=== PATIENT | male | born 1990 | race Caucasian/White ===

== ENCOUNTER 2016-05-15 01:40 | Emergency (ER) | payer MEDICAID, OTHER ==
[2016-05-15] MEDS ORDERED: ALPRAZolam 0.25 MG TAB As Ordered ONE (02:26)
[2016-05-15] MEDS ORDERED: ACETAMINOPHEN 325 MG TAB As Ordered ONE (02:27)
--- NOTE | 2016-05-15 04:00 | REPUSA ---
CLINICAL HISTORY: Head trauma. TECHNIQUE: Multiple axial brain CT scan sections were obtained from base to vertex without contrast a dministration. COMMENTS: There is no evidence of skull fracture. The study shows normal configuration of sella turcica. There are no intra or extra-axial collections. There is no mass effect or midline shift. There is no evidence of hematoma formation. No hydrocephal us is present. No abnormal calcifications are noted. No significant abnormalities are seen either in the posterior fossa or supratentorial compartment. The sinuses and mastoid air cells are patent. Right frontal soft tissue contusion. IMPRESSION: No evidence of acute intracranial pathology. No intracranial hemorrhage or skull fracture. Thank you for your kind referral of this patient.
--- NOTE | 2016-05-15 05:11 | EDDOCDS ---
Nurse's Notes [facility] Name: Giovanny Carlson Age: 25 yrs Sex: Male : 1990 Arrival Date: 05/15/2016 Time: 01:40 Bed 11 Private MD: Diagnosis: Generalized anxiety disorder;Syncope and collapse-Hyperventilation Presentation: 05/15 01:45 Presenting complaint: Patient states: Pt was at work and had an anxiety attack and then lf1 a syncopal episode. Pt. reports he was standing up and then fell backward and hit the right temporal area of his head. Pt. reports the episode was unwitnessed but he believes he was unconscious for 10 minutes - no incontinence or history of seizures. Pt. states when he came to he flet like he was hyperventilating and had mid sternal chest pain that was 6/10. Presenting complaint: Patient states: Pt reports that similar episodes have happened in the past but he can usually prevent them if he sits down. Mental Health Triage Level: Level 1- Pt displays no suicidal or homicidal ideations and does not appear to be a danger to self or others. Adult Sepsis Screening: The patient does not have new or worsening altered mentation. Patient's respiratory rate is less than 22. Adult Sepsis Screening: Systolic blood pressure is greater than 100. Patient has a qSOFA score of 0- Negative Sepsis Screen. Suicide/Homicide risk assessment- the patient denies having any suicidal and/or homicidal ideations and does not present with any other emotional, behavioral or mental health complaints. Status: Patient is not a multimedia services manager or dependent. Transition of care: patient was not received from another setting of care. 01:45 Acuity: ARACELI Level 3 lf1 01:45 Method Of Arrival: Walkin/Carried/Asstd lf1 Triage Assessment: 01:53 General: Appears uncomfortable, Behavior is cooperative. Pain: Location: chest Pain lf1 currently is 6 out of 10 on a pain scale. HIV screening NA for this visit Offered previously. Neurological: Level of Consciousness is awake, alert, Oriented to person, place, time. EENT: No deficits noted. Cardiovascular: Chest pain is described as diffuse, Pain is 6 out of 10 on a pain scale. is located in mid sternal. Respiratory: Respiratory effort is even, unlabored, Respiratory pattern is regular. GI: Reports nausea, vomiting. Derm: Skin is normal. Injury Description: pt fell from standing. Historical: - Allergies: No known drug Allergies; - Home Meds: 1. none - PMHx: Anxiety; Depression; - PSHx: none; - Social history: Smoking status: Patient states former smoker of tobacco. No barriers to communication noted, The patient speaks fluent [place], Speaks appropriately for age, Preferred Language: [place]. - Family history: Not pertinent. - : The pt / caregiver states he / she is not on anticoagulants. Home medication list is obtained from the patient. - Exposure Risk Screening:: None identified. Screenin:30 Screening information is obtained from the patient. Fall risk: No risks identified. kas2 Assistance ADL's: requires no assistance with activities of daily living. Abuse/DV Screen: The patient / caregiver reports he/she is: not in a situation that causes fear, pain or injury. Nutritional screening: No deficits noted. Advance Directives: Currently, there is no health care proxy. There is no active DNR order. There is no living will. There is no Power of [employer] Con[employer]cher. home support is adequate. Assessment: 02:15 General: Appears in no apparent distress, comfortable, well nourished, well groomed, kas2 Behavior is appropriate for age, cooperative. Pain: Denies pain. Neurological: Level of Consciousness is awake, alert, Oriented to person, place, time. Cardiovascular: Rhythm is regular. Respiratory: Airway is patent Respiratory effort is even, unlabored, Respiratory pattern is regular, symmetrical, Breath sounds are clear bilaterally. Derm: Skin is intact, Skin is dry, Skin is pink, warm & dry. Skin temperature is warm. 03:36 General: Appears in no apparent distress, comfortable, Behavior is appropriate for age, kas2 cooperative. Pain: Denies pain. Neurological: Level of Consciousness is awake, alert, Oriented to person, place, time. Respiratory: Airway is patent Respiratory effort is even, unlabored, Respiratory pattern is regular, symmetrical. Derm: Skin is intact, Skin is dry, Skin is pink, warm & dry. Skin temperature is. 04:18 General: Patient laying in bed. No apparent distress. Appears comfortable. Denies pain kas2 or discomfort at this time. Call ng within reach. Will continue to monitor.. 04:55 General: Appears in no apparent distress, comfortable, Behavior is appropriate for age, kas2 cooperative. Pain: Denies pain. Neurological: Level of Consciousness is awake, alert, Oriented to person, place, time. Respiratory: Airway is patent Respiratory effort is even, unlabored, Respiratory pattern is regular, symmetrical. Derm: Skin is intact, Skin is dry, Skin is pink, warm & dry. Skin temperature is warm. Vital Signs: 01:45 BP 132 / 92; Pulse 90; Resp 18; Temp 97.1(T); Pulse Ox 100% on R/A; Weight 56.7 kg; lf1 Height 6 ft. 0 in. (182.88 cm); Pain 5/10; 05:08 BP 149 / 77; Pulse 54; Resp 18; Temp 96.8(O); Pulse Ox 99% on R/A; Pain 0/10; kas2 01:45 Body Mass Index 16.95 (56.70 kg, 182.88 cm) lf1 Vitals: 01:45 Log In Time: May 15, 2016 at 01:40. 1 ED Course: 01:42 Patient visited by Dawson Stovall Reg. pm4 01:42 Patient moved to Waiting pm4 01:45 Samantha Yen,RN is Primary Nurse. lf1 01:51 Triage Initiated lf1 01:56 Cecelia Mendez RN is Primary Nurse. lf1 01:56 Patient moved to 11 lf1 02:12 Kvng Garcia DO is Attending Physician. mm11 02:12 Patient visited by Kvng Garcia DO. mm11 02:25 Patient visited by Kvng Garcia DO. mm11 02:31 Patient visited by Cecelia Mendez RN. kas2 03:03 Patient visited by Cecelia Mendez RN. kas2 03:28 [facility] Payment Agreement was scanned into [employer] and attached to record. hs2 03:37 Patient visited by Cecelia Mendez RN. kas2 04:18 CT Head Without Contrast Returned. EDMS 04:19 Patient visited by Cecelia Mendez RN. kas2 04:48 [facility] is Referral Physician. mm11 05:10 The patient / caregiver is instructed regarding the plan of care and ED course. kas2 05:10 No IV's were initiated during this patient's visit. No procedures done that require [facility] assistance. Administered Medications: 02:29 Drug: ALPRAZolam 0.25 mg [alprazolam 0.25 mg tablet (1 tabs)] Route: PO; [facility] 02:29 Drug: Acetaminophen 650 mg [acetaminophen 325 mg tablet (2 tabs)] Route: PO; kas2 Order Results: Radiology Order: CT Head Without Contrast Test: CT Head Without Contrast REASON FOR EXAMINATION: Trauma; ; CLINICAL HISTORY: Head trauma.; TECHNIQUE: Multiple axial brain CT scan sections were obtained from base to vertex without contrast a; dministration.; COMMENTS:; There is no evidence of skull fracture.; The study shows normal configuration of sella turcica. There are no intra or extra-axial collections.; There is no mass effect or midline shift. There is no evidence of hematoma formation. No hydrocephal; us is present. No abnormal calcifications are noted.; No significant abnormalities are seen either in the posterior fossa or supratentorial compartment.; The sinuses and mastoid air cells are patent.; Right frontal soft tissue contusion.; IMPRESSION:; No evidence of acute intracranial pathology. No intracranial hemorrhage or skull fracture.; Thank you for your kind referral of this patient.; ; Outcome: 04:49 Discharge ordered by Provider. mm11 05:09 Discharge Assessment: patient administered narcotics - no. The following High Risk [facility] Discharge criteria are identified: None. Discharged to home ambulatory. Condition: good Condition: stable Condition: improved. CT Study completed. Property :Personal belongings accompany Pt. 05:10 Patient left the ED. [facility] Signatures: Dispatcher [employer] Samantha Perez RN RN lf1 Kvng Garcia, DO DO mm11 Honey Recio, Reg Reg hs2 Cecelia Mendez RN RN kas2 Dawson Stovall, Reg Reg pm4 ERID
--- NOTE | 2016-05-15 05:11 | EDDOCDS ---
Physician Documentation [facility] Name: Giovanny Carlson Age: 25 yrs Sex: Male : 1990 Arrival Date: 05/15/2016 Time: 01:40 Bed 11 Private MD: Disposition: 05/15/16 04:49 Discharged to Home/Self Care. Impression: Generalized anxiety disorder, Syncope and collapse - Hyperventilation. - Condition is Stable. - Discharge Instructions: Panic Attacks, Syncope, Syncope, [id number], Generalized Anxiety Disorder, Panic Attacks, [id number]. - Medication Reconciliation, Local Pharmacy Hours form. - Follow up: [facility]; When: 4 - 5 days; Reason: Continuance of care. - Problem is an acute exacerbation. - Symptoms have improved. Historical: - Allergies: No known drug Allergies; - Home Meds: 1. none - PMHx: Anxiety; Depression; - PSHx: none; - Social history: Smoking status: Patient states former smoker of tobacco. No barriers to communication noted, The patient speaks fluent [place]ian, Speaks appropriately for age, Preferred Language: [place]ian. - Family history: Not pertinent. - : The pt / caregiver states he / she is not on anticoagulants. Home medication list is obtained from the patient. - Exposure Risk Screening:: None identified. Vital Signs: 05/15 01:45 BP 132 / 92; Pulse 90; Resp 18; Temp 97.1(T); Pulse Ox 100% on R/A; Weight 56.7 kg / lf1 125 lbs; Height 6 ft. 0 in. (182.88 cm); Pain 5/10; 05:08 BP 149 / 77; Pulse 54; Resp 18; Temp 96.8(O); Pulse Ox 99% on R/A; Pain 0/10; kas2 01:45 Body Mass Index 16.95 (56.70 kg, 182.88 cm) lf1 MDM: 02:24 ALPRAZolam Tablet 0.25 mg PO once ordered. mm11 02:25 Acetaminophen Tablet 650 mg PO once ordered. mm11 02:25 CT Head Without Contrast Ordered. EDMS 03:27 Financial registration complete. hs2 03:28 [facility] [place] [facility] Payment Agreement was scanned into [employer] and attached to record. hs2 Administered Medications: 02:29 Drug: ALPRAZolam 0.25 mg [alprazolam 0.25 mg tablet (1 tabs)] Route: PO; kas2 02:29 Drug: Acetaminophen 650 mg [acetaminophen 325 mg tablet (2 tabs)] Route: PO; kas2 Signatures: Dispatcher [employer] EDSamantha AlbertsRN RN lf1 Kvng Garcia, DO mm11 Honey Recio, Reg Reg hs2 Cecelia Mendez RN RN kas2 The chart was reviewed and I authenticate all verbal orders and agree with the evaluation and treatment provided.Attachments: 03:28 [facility] Payment Agreement hs2 MTDD
--- NOTE | 2016-05-17 06:11 | EDDOCDS ---
Physician Documentation [facility] Name: Giovanny Carlson Age: 25 yrs Sex: Male : 1990 Arrival Date: 05/15/2016 Time: 01:40 Bed 11 Private MD: Disposition: 05/15/16 04:49 Discharged to Home/Self Care. Impression: Generalized anxiety disorder, Syncope and collapse - Hyperventilation. - Condition is Stable. - Discharge Instructions: Panic Attacks, Syncope, Syncope, [id number], Generalized Anxiety Disorder, Panic Attacks, [id number]-uk-[id number]. - Medication Reconciliation, Local Pharmacy Hours form. - Follow up: [facility]; When: 4 - 5 days; Reason: Continuance of care. - Problem is an acute exacerbation. - Symptoms have improved. Historical: - Allergies: No known drug Allergies; - Home Meds: 1. none - PMHx: Anxiety; Depression; - PSHx: none; - Social history: Smoking status: Patient states former smoker of tobacco. No barriers to communication noted, The patient speaks fluent [place], Speaks appropriately for age, Preferred Language: [place]. - Family history: Not pertinent. - : The pt / caregiver states he / she is not on anticoagulants. Home medication list is obtained from the patient. - Exposure Risk Screening:: None identified. Vital Signs: 05/15 01:45 BP 132 / 92; Pulse 90; Resp 18; Temp 97.1(T); Pulse Ox 100% on R/A; Weight 56.7 kg / lf1 125 lbs; Height 6 ft. 0 in. (182.88 cm); Pain 5/10; 05:08 BP 149 / 77; Pulse 54; Resp 18; Temp 96.8(O); Pulse Ox 99% on R/A; Pain 0/10; kas2 01:45 Body Mass Index 16.95 (56.70 kg, 182.88 cm) lf1 MDM: 02:24 ALPRAZolam Tablet 0.25 mg PO once ordered. mm11 02:25 Acetaminophen Tablet 650 mg PO once ordered. mm11 02:25 CT Head Without Contrast Ordered. EDMS 03:27 Financial registration complete. hs2 03:28 [facility] Payment Agreement was scanned into [employer] and attached to record. hs2 14:52 T-Sheet-- Draft Copy was scanned into [employer] and attached to record. gb Administered Medications: 02:29 Drug: ALPRAZolam 0.25 mg [alprazolam 0.25 mg tablet (1 tabs)] Route: PO; [facility] 02:29 Drug: Acetaminophen 650 mg [acetaminophen 325 mg tablet (2 tabs)] Route: PO; kas2 Signatures: Dispatcher [employer] EDMS Jeannie Andrew, Reg Reg gb Samantha YenRN RN lf1 Kvng Garcia DO DO mm11 Honey Recio, Reg Reg hs2 Cecelia Mendez RN RN kas2 The chart was reviewed and I authenticate all verbal orders and agree with the evaluation and treatment provided.Attachments: 03:28 [facility] Payment Agreement hs2 14:52 T-Sheet-- Draft Copy gb Chart Complete MTDD
--- NOTE | 2016-05-17 06:11 | EDDOCDS ---
Physician Documentation [facility] Name: Giovanny Carlson Age: 25 yrs Sex: Male : 1990 Arrival Date: 05/15/2016 Time: 01:40 Bed 11 Private MD: Disposition: 05/15/16 04:49 Discharged to Home/Self Care. Impression: Generalized anxiety disorder, Syncope and collapse - Hyperventilation. - Condition is Stable. - Discharge Instructions: Panic Attacks, Syncope, Syncope, [id number]-[id number], Generalized Anxiety Disorder, Panic Attacks, Uztq-ic-Vozz. - Medication Reconciliation, Local Pharmacy Hours form. - Follow up: [facility]; When: 4 - 5 days; Reason: Continuance of care. - Problem is an acute exacerbation. - Symptoms have improved. Historical: - Allergies: No known drug Allergies; - Home Meds: 1. none - PMHx: Anxiety; Depression; - PSHx: none; - Social history: Smoking status: Patient states former smoker of tobacco. No barriers to communication noted, The patient speaks fluent [place]cu[place], Speaks appropriately for age, Preferred Language: Ecuadorean. - Family history: Not pertinent. - : The pt / caregiver states he / she is not on anticoagulants. Home medication list is obtained from the patient. - Exposure Risk Screening:: None identified. Vital Signs: 05/15 01:45 BP 132 / 92; Pulse 90; Resp 18; Temp 97.1(T); Pulse Ox 100% on R/A; Weight 56.7 kg / lf1 125 lbs; Height 6 ft. 0 in. (182.88 cm); Pain 5/10; 05:08 BP 149 / 77; Pulse 54; Resp 18; Temp 96.8(O); Pulse Ox 99% on R/A; Pain 0/10; kas2 01:45 Body Mass Index 16.95 (56.70 kg, 182.88 cm) lf1 MDM: 02:24 ALPRAZolam Tablet 0.25 mg PO once ordered. mm11 02:25 Acetaminophen Tablet 650 mg PO once ordered. mm11 02:25 CT Head Without Contrast Ordered. EDMS 03:27 Financial registration complete. hs2 03:28 [facility] [place] Payment Agreement was scanned into [employer] and attached to record. hs2 14:52 T-Sheet-- Draft Copy was scanned into [employer] and attached to record. gb Administered Medications: 02:29 Drug: ALPRAZolam 0.25 mg [alprazolam 0.25 mg tablet (1 tabs)] Route: PO; [facility] 02:29 Drug: Acetaminophen 650 mg [acetaminophen 325 mg tablet (2 tabs)] Route: PO; kas2 Signatures: Dispatcher [employer] EDMS Jeannie Andrew, Reg Reg gb Samantha YenRN RN lf1 Kvng Garcia DO DO mm11 Honey Recio, Reg Reg hs2 Cecelia Mendez RN RN kas2 The chart was reviewed and I authenticate all verbal orders and agree with the evaluation and treatment provided.Attachments: 03:28 [facility] Payment Agreement hs2 14:52 T-Sheet-- Draft Copy gb Chart Complete MTDD
--- NOTE | 2016-05-17 06:11 | EDDOCDS ---
Nurse's Notes [facility] Name: Giovanny Carlson Age: 25 yrs Sex: Male : 1990 Arrival Date: 05/15/2016 Time: 01:40 Bed 11 Private MD: Diagnosis: Generalized anxiety disorder;Syncope and collapse-Hyperventilation Presentation: 05/15 01:45 Presenting complaint: Patient states: Pt was at work and had an anxiety attack and then lf1 a syncopal episode. Pt. reports he was standing up and then fell backward and hit the right temporal area of his head. Pt. reports the episode was unwitnessed but he believes he was unconscious for 10 minutes - no incontinence or history of seizures. Pt. states when he came to he flet like he was hyperventilating and had mid sternal chest pain that was 6/10. Presenting complaint: Patient states: Pt reports that similar episodes have happened in the past but he can usually prevent them if he sits down. Mental Health Triage Level: Level 1- Pt displays no suicidal or homicidal ideations and does not appear to be a danger to self or others. Adult Sepsis Screening: The patient does not have new or worsening altered mentation. Patient's respiratory rate is less than 22. Adult Sepsis Screening: Systolic blood pressure is greater than 100. Patient has a qSOFA score of 0- Negative Sepsis Screen. Suicide/Homicide risk assessment- the patient denies having any suicidal and/or homicidal ideations and does not present with any other emotional, behavioral or mental health complaints. Status: Patient is not a instructional support services director or dependent. Transition of care: patient was not received from another setting of care. 01:45 Acuity: ARACELI Level 3 lf1 01:45 Method Of Arrival: Walkin/Carried/Asstd lf1 Triage Assessment: 01:53 General: Appears uncomfortable, Behavior is cooperative. Pain: Location: chest Pain lf1 currently is 6 out of 10 on a pain scale. HIV screening NA for this visit Offered previously. Neurological: Level of Consciousness is awake, alert, Oriented to person, place, time. EENT: No deficits noted. Cardiovascular: Chest pain is described as diffuse, Pain is 6 out of 10 on a pain scale. is located in mid sternal. Respiratory: Respiratory effort is even, unlabored, Respiratory pattern is regular. GI: Reports nausea, vomiting. Derm: Skin is normal. Injury Description: pt fell from standing. Historical: - Allergies: No known drug Allergies; - Home Meds: 1. none - PMHx: Anxiety; Depression; - PSHx: none; - Social history: Smoking status: Patient states former smoker of tobacco. No barriers to communication noted, The patient speaks fluent [place]i, Speaks appropriately for age, Preferred Language: [place]i. - Family history: Not pertinent. - : The pt / caregiver states he / she is not on anticoagulants. Home medication list is obtained from the patient. - Exposure Risk Screening:: None identified. Screenin:30 Screening information is obtained from the patient. Fall risk: No risks identified. kas2 Assistance ADL's: requires no assistance with activities of daily living. Abuse/DV Screen: The patient / caregiver reports he/she is: not in a situation that causes fear, pain or injury. Nutritional screening: No deficits noted. Advance Directives: Currently, there is no health care proxy. There is no active DNR order. There is no living will. There is no Power of Well Logger. home support is adequate. Assessment: 02:15 General: Appears in no apparent distress, comfortable, well nourished, well groomed, kas2 Behavior is appropriate for age, cooperative. Pain: Denies pain. Neurological: Level of Consciousness is awake, alert, Oriented to person, place, time. Cardiovascular: Rhythm is regular. Respiratory: Airway is patent Respiratory effort is even, unlabored, Respiratory pattern is regular, symmetrical, Breath sounds are clear bilaterally. Derm: Skin is intact, Skin is dry, Skin is pink, warm & dry. Skin temperature is warm. 03:36 General: Appears in no apparent distress, comfortable, Behavior is appropriate for age, kas2 cooperative. Pain: Denies pain. Neurological: Level of Consciousness is awake, alert, Oriented to person, place, time. Respiratory: Airway is patent Respiratory effort is even, unlabored, Respiratory pattern is regular, symmetrical. Derm: Skin is intact, Skin is dry, Skin is pink, warm & dry. Skin temperature is. 04:18 General: Patient laying in bed. No apparent distress. Appears comfortable. Denies pain kas2 or discomfort at this time. Call ng within reach. Will continue to monitor.. 04:55 General: Appears in no apparent distress, comfortable, Behavior is appropriate for age, kas2 cooperative. Pain: Denies pain. Neurological: Level of Consciousness is awake, alert, Oriented to person, place, time. Respiratory: Airway is patent Respiratory effort is even, unlabored, Respiratory pattern is regular, symmetrical. Derm: Skin is intact, Skin is dry, Skin is pink, warm & dry. Skin temperature is warm. Vital Signs: 01:45 BP 132 / 92; Pulse 90; Resp 18; Temp 97.1(T); Pulse Ox 100% on R/A; Weight 56.7 kg; lf1 Height 6 ft. 0 in. (182.88 cm); Pain 5/10; 05:08 BP 149 / 77; Pulse 54; Resp 18; Temp 96.8(O); Pulse Ox 99% on R/A; Pain 0/10; kas2 01:45 Body Mass Index 16.95 (56.70 kg, 182.88 cm) lf1 Vitals: 01:45 Log In Time: May 15, 2016 at 01:40. 1 ED Course: 01:42 Patient visited by Dawson Stovall Reg. pm4 01:42 Patient moved to Waiting pm4 01:45 Samantha Yen,RN is Primary Nurse. lf1 01:51 Triage Initiated lf1 01:56 Cecelia Mendez RN is Primary Nurse. lf1 01:56 Patient moved to 11 lf1 02:12 Kvng Garcia DO is Attending Physician. mm11 02:12 Patient visited by Kvng Garcia DO. mm11 02:25 Patient visited by Kvng Garcia DO. mm11 02:31 Patient visited by Cecelia Mendez RN. kas2 03:03 Patient visited by Cecelia Mendez RN. kas2 03:28 [facility] Payment Agreement was scanned into [employer] and attached to record. hs2 03:37 Patient visited by Cecelia Mendez RN. kas2 04:18 CT Head Without Contrast Returned. EDMS 04:19 Patient visited by Cecelia Mendez RN. kas2 04:48 [facility] is Referral Physician. mm11 05:10 The patient / caregiver is instructed regarding the plan of care and ED course. kas2 05:10 No IV's were initiated during this patient's visit. No procedures done that require [facility] assistance. 14:52 T-Sheet-- Draft Copy was scanned into [employer] and attached to record. gb Administered Medications: 02:29 Drug: ALPRAZolam 0.25 mg [alprazolam 0.25 mg tablet (1 tabs)] Route: PO; kas2 02:29 Drug: Acetaminophen 650 mg [acetaminophen 325 mg tablet (2 tabs)] Route: PO; kas2 Order Results: Radiology Order: CT Head Without Contrast Test: CT Head Without Contrast REASON FOR EXAMINATION: Trauma; ; CLINICAL HISTORY: Head trauma.; TECHNIQUE: Multiple axial brain CT scan sections were obtained from base to vertex without contrast a; dministration.; COMMENTS:; There is no evidence of skull fracture.; The study shows normal configuration of sella turcica. There are no intra or extra-axial collections.; There is no mass effect or midline shift. There is no evidence of hematoma formation. No hydrocephal; us is present. No abnormal calcifications are noted.; No significant abnormalities are seen either in the posterior fossa or supratentorial compartment.; The sinuses and mastoid air cells are patent.; Right frontal soft tissue contusion.; IMPRESSION:; No evidence of acute intracranial pathology. No intracranial hemorrhage or skull fracture.; Thank you for your kind referral of this patient.; ; Outcome: 04:49 Discharge ordered by Provider. mm11 05:09 Discharge Assessment: patient administered narcotics - no. The following High Risk [facility] Discharge criteria are identified: None. Discharged to home ambulatory. Condition: good Condition: stable Condition: improved. CT Study completed. Property :Personal belongings accompany Pt. 05:10 Patient left the ED. [facility] Signatures: Dispatcher [employer] EDMS Jeannie Andrew, Reg Reg gb Samantha Yen,RN RN lf1 Kvng Garcia, DO mm11 Honey Recio, Reg Reg hs2 Cecelia Mendez RN RN kas2 Dawson Stovall, Reg Reg pm4 Chart Complete MTDD
== END 2016-05-15 05:10 | disposition home or self-care (01) ==
LOC: M ED 01:40
DX: F41.1 Generalized anxiety disorder (principal); R55 Syncope and collapse; F32.9 Major depressive disorder, single episode, unspecified; Z87.891 Personal history of nicotine dependence

== ENCOUNTER 2017-01-19 16:10 | Emergency (ER) | payer OTHER ==
[~2017-01-19] VITALS: Ht 180.3 cm; Wt 61.4 kg
[2017-01-19 16:10] VITALS: BP 145/68
[2017-01-19] MEDS ORDERED: CYCL10TA PO (17:16)
[2017-01-19] MEDS ORDERED: IBUP-1022 PO (17:16)
== END 2017-01-19 17:26 | disposition home or self-care (01) ==
LOC: M ED 16:10
DX: S46.912A Strain of unspecified muscle, fascia and tendon at shoulder and upper arm level, left arm, initial encounter (principal); X58.XXXA Exposure to other specified factors, initial encounter; Y92.9 Unspecified place or not applicable; Y93.9 Activity, unspecified; Y99.9 Unspecified external cause status

== ENCOUNTER → 2017-06-02 | Outpatient (CLI) | payer OTHER | LOC: M WUC 16:29 | DX: S13.4XXA Sprain of ligaments of cervical spine, initial encounter (principal); M54.6 Pain in thoracic spine | CPT/HCPCS: 72052 ==

== ENCOUNTER 2017-12-16 09:43 | Emergency (ER) | payer OTHER ==
[2017-12-16] MEDS: diphenhydrAMINE INJ 50MG/ML VIAL (J1200) IV (10:18)
[2017-12-16] MEDS: ONDANSETRON 4MG/2ML VIAL (J2405) IV (10:18)
[2017-12-16] MEDS: methylPREDNISolone INJ 125 MG/2 ML VIAL (J2930) IV (10:18)
[2017-12-16] MEDS: FAMOTIDINE IV BAG 20 MG in APPROPRIATE DILUENT 1 EA IV (10:19)
[2017-12-16] MEDS: NS 1,000 ML IV (10:19)
[2017-12-16 10:20] LABS: BASO # 0.1 10^3/uL (0.0-0.2); BASO % 0.7 % (0.0-1.0); EOS # 0.3 10^3/uL (0.0-0.50); EOS % 3.8 % (0.0-3.0); HEMATOCRIT 45.9 % (42.0-52.0); IMMATURE GRANULOCYTE % 0.4 % (0-3.0); LYMPH # 2.4 10^3/uL (1.5-6.5); LYMPH % 33.6 % (24.0-44.0); MEAN CORPUSCULAR HEMOGLOBIN 30.7 pg (27.0-33.0); MEAN CORPUSCULAR HGB CONC 34.9 g/dl (32.0-36.5); MEAN CORPUSCULAR VOLUME 88.1 fl (80.0-96.0); MONO # 1.1 10^3/uL (0.0-0.8); NEUTROPHILS # 3.2 10^3/uL (1.8-7.7); NEUTROPHILS % 45.5 % (36.0-66.0); PLATELET COUNT, AUTOMATED 256 10^3/uL (150-450); RED BLOOD COUNT 5.21 10^6/uL (4.30-6.10); RED CELL DISTRIBUTION WIDTH 13.2 % (11.5-14.5)
[2017-12-16 10:49] LABS: ALBUMIN 4.4 GM/DL (3.2-5.2); ALBUMIN/GLOBULIN RATIO 1.07 (1.00-1.93); ALT/SGPT 52 U/L (12-78); ANION GAP 12 MEQ/L (8-16); AST/SGOT 41 U/L (7-37); BILIRUBIN,TOTAL 0.7 MG/DL (0.2-1.0); BLOOD UREA NITROGEN 12 MG/DL (7-18); CALCIUM LEVEL 9.4 MG/DL (8.5-10.1); CARBON DIOXIDE LEVEL 23 MEQ/L (21-32); CHLORIDE LEVEL 105 MEQ/L (98-107); CPK CREATINE PHOSPHOKINASE 296 U/L (39-308); CREATININE FOR GFR 1.13 MG/DL (0.70-1.30); ETHYL ALCOHOL (ETHANOL) < 0.003 % (0.000-0.010); GLOMERULAR FILTRATION RATE > 60.0 (>60); GLUCOSE, FASTING 89 MG/DL (70-100); POTASSIUM SERUM 4.4 MEQ/L (3.5-5.1); SALICYLATE LEVEL 4.3 MG/DL (5.0-30.0); SODIUM LEVEL 140 MEQ/L (136-145); TOTAL PROTEIN 8.5 GM/DL (6.4-8.2); TROPONIN I < 0.02 NG/ML (< 0.10)
[2017-12-16 10:55] LABS: ALKALINE PHOSPHATASE 109 U/L (45-117); CK-MB VALUE MASS 2.5 NG/ML (<3.6); MB/CK RELATIVE INDEX 0.84 (< OR =4)
[2017-12-16 10:57] LABS: ACETAMINOPHEN LEVEL < 2.0 UG/ML (10.0-30.0)
[2017-12-16 12:48] LABS: AMPHETAMINES LEVEL URINE NEGATIVE (NEGATIVE); BARBITURATES URINE NEGATIVE (NEGATIVE); BENZODIAZEPINES URINE NEGATIVE (NEGATIVE); CANNABINOIDS URINE POSITIVE (NEGATIVE); COCAINE METABOLITE URINE NEGATIVE (NEGATIVE); METHADONE URINE NEGATIVE (NEGATIVE); OPIATES URINE NEGATIVE (NEGATIVE); PHENCYCLIDINE URINE NEGATIVE (NEGATIVE)
== END 2017-12-16 13:02 | disposition home or self-care (01) ==
LOC: M ED 09:43
DX: M79.643 Pain in unspecified hand (principal); R07.9 Chest pain, unspecified; R11.0 Nausea; R51 Headache; R13.10 Dysphagia, unspecified; R06.00 Dyspnea, unspecified; T43.205A Adverse effect of unspecified antidepressants, initial encounter; F33.9 Major depressive disorder, recurrent, unspecified; F41.9 Anxiety disorder, unspecified; F17.200 Nicotine dependence, unspecified, uncomplicated
CPT/HCPCS: J1200

== ENCOUNTER 2018-05-17 07:55 | Emergency (ER) | payer OTHER, SELFPAY ==
[~2018-05-17] VITALS: Ht 180.3 cm; Wt 70.5 kg
[~2018-05-17 07:55] MED LIST: BENA25CA4 PO; CYCL10TA PO; IBUP-1022 PO; PEPC1TAB5 PO; PRED20TA PO; VENL75TA2
[2018-05-17] MEDS ORDERED: ALPR1TAB3 PO (08:02)
[2018-05-17] MEDS ORDERED: ZOLO25TA PO (08:02)
[2018-05-17] MEDS ORDERED: LORazepam 1 MG TAB PO STA (08:11)
[2018-05-17 08:35] LABS: BASO % 0.7 % (0.0-1.0); EOS # 0.3 10^3/uL (0.0-0.50); EOS % 5.4 % (0.0-3.0); HEMATOCRIT 45.4 % (42.0-52.0); HEMOGLOBIN 15.2 g/dl (13.5-17.5); LYMPH # 1.6 10^3/uL (1.5-6.5); LYMPH % 33.7 % (24.0-44.0); MEAN CORPUSCULAR HEMOGLOBIN 30.5 pg (27.0-33.0); MEAN CORPUSCULAR HGB CONC 33.5 g/dl (32.0-36.5); MEAN CORPUSCULAR VOLUME 91.2 fl (80.0-96.0); MONO # 0.6 10^3/uL (0.0-0.8); MONO % 13.7 % (0.0-5.0); NEUTROPHILS # 2.1 10^3/uL (1.8-7.7); NEUTROPHILS % 46.5 % (36.0-66.0); PLATELET COUNT, AUTOMATED 239 10^3/uL (150-450); RED BLOOD COUNT 4.98 10^6/uL (4.30-6.10); WHITE BLOOD COUNT 4.6 10^3/uL (4.0-10.0)
[2018-05-17 09:30] LABS: ALT/SGPT 26 U/L (12-78); BILIRUBIN,DIRECT 0.1 MG/DL (0.0-0.2); BILIRUBIN,TOTAL 0.6 MG/DL (0.2-1.0); BLOOD UREA NITROGEN 10 MG/DL (7-18); CALCIUM LEVEL 8.6 MG/DL (8.5-10.1); CARBON DIOXIDE LEVEL 25 MEQ/L (21-32); CHLORIDE LEVEL 109 MEQ/L (98-107); CPK CREATINE PHOSPHOKINASE 207 U/L (39-308); CREATININE FOR GFR 0.97 MG/DL (0.70-1.30); GLOMERULAR FILTRATION RATE > 60.0 (>60); GLUCOSE, FASTING 104 MG/DL (70-100); POTASSIUM SERUM 4.4 MEQ/L (3.5-5.1); SALICYLATE LEVEL 3.2 MG/DL (5.0-30.0); SODIUM LEVEL 141 MEQ/L (136-145); THYROID STIMULATING HORMONE 0.544 uIU/ML (0.358-3.740); TOTAL PROTEIN 7.6 GM/DL (6.4-8.2); TROPONIN I < 0.02 NG/ML (< 0.10)
[2018-05-17 09:31] LABS: ACETAMINOPHEN LEVEL < 2.0 UG/ML (10.0-30.0); ETHYL ALCOHOL (ETHANOL) < 0.003 % (0.000-0.010)
[2018-05-17] MEDS ORDERED: ATIV1TAB7 PO ×2 (11:23→11:25)
[2018-05-17 11:35] VITALS: BP 131/63
--- NOTE | 2018-05-19 08:35 | ECGEPIP ---
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
== END 2018-05-17 11:37 | disposition home or self-care (01) ==
LOC: M ED 07:55
DX: F41.9 Anxiety disorder, unspecified (principal); R07.9 Chest pain, unspecified; F17.200 Nicotine dependence, unspecified, uncomplicated; Z88.8 Allergy status to other drugs, medicaments and biological substances; Z79.899 Other long term (current) drug therapy
CPT/HCPCS: 36415; 80048; 80076; 82550; 82553; 84443; 84484; 85025; 85379; 93005; 99284; G0480

== ENCOUNTER 2019-02-14 15:53 | Emergency (ER) | payer SELFPAY ==
[~2019-02-14] VITALS: Ht 182.9 cm; Wt 73.6 kg
[2019-02-14 15:53] VITALS: BP 172/92
[~2019-02-14 15:53] MED LIST changes: +ALPR1TAB3 PO; +ATIV1TAB7 PO; +ZOLO25TA PO
== END 2019-02-14 16:53 | disposition home or self-care (01) ==
LOC: M ED 15:53
DX: F41.9 Anxiety disorder, unspecified (principal); F32.9 Major depressive disorder, single episode, unspecified; F43.0 Acute stress reaction; F17.218 Nicotine dependence, cigarettes, with other nicotine-induced disorders; Z88.8 Allergy status to other drugs, medicaments and biological substances

== ENCOUNTER 2019-02-25 09:05 | Emergency (ER) | payer SELFPAY ==
[~2019-02-25] VITALS: Ht 182.9 cm; Wt 68.2 kg
[2019-02-25] MEDS ORDERED: NS 1,000 ML IV ONE (09:30)
[2019-02-25] MEDS ORDERED: ACETAMINOPHEN 325 MG TAB PO ONE (09:45)
[2019-02-25 10:05] LABS: BASO # 0.1 10^3/uL (0.0-0.2); BASO % 0.7 % (0.0-1.0); EOS # 0.2 10^3/uL (0.0-0.5); EOS % 2.9 % (0.0-3.0); HEMATOCRIT 46.9 % (42.0-52.0); HEMOGLOBIN 15.9 g/dl (13.5-17.5); LYMPH # 2.5 10^3/uL (1.5-5.0); LYMPH % 36.1 % (24.0-44.0); MEAN CORPUSCULAR HEMOGLOBIN 30.5 pg (27.0-33.0); MEAN CORPUSCULAR HGB CONC 33.9 g/dl (32.0-36.5); MONO # 0.7 10^3/uL (0.0-0.8); MONO % 9.9 % (0.0-5.0); NEUTROPHILS # 3.4 10^3/uL (1.5-8.5); PLATELET COUNT, AUTOMATED 254 10^3/uL (150-450); RED BLOOD COUNT 5.21 10^6/uL (4.30-6.10); WHITE BLOOD COUNT 6.9 10^3/uL (4.0-10.0)
[2019-02-25 10:28] LABS: INFLUENZA A AMPLIFICATION NEGATIVE (NEGATIVE); INFLUENZA B AMPLIFICATION NEGATIVE (NEGATIVE)
[2019-02-25 10:35] LABS: ALBUMIN 4.4 GM/DL (3.2-5.2); ALT/SGPT 34 U/L (12-78); BILIRUBIN,TOTAL 0.6 MG/DL (0.2-1.0); BLOOD UREA NITROGEN 8 MG/DL (7-18); CALCIUM LEVEL 9.9 MG/DL (8.5-10.1); CARBON DIOXIDE LEVEL 26 MEQ/L (21-32); CHLORIDE LEVEL 108 MEQ/L (98-107); CREATININE FOR GFR 1.02 MG/DL (0.70-1.30); GLOMERULAR FILTRATION RATE > 60.0 (>60); GLUCOSE, FASTING 86 MG/DL (70-100); SODIUM LEVEL 140 MEQ/L (136-145); TOTAL PROTEIN 8.7 GM/DL (6.4-8.2)
[2019-02-25 10:43] LABS: CK-MB VALUE MASS 3.1 NG/ML (<3.6); CPK CREATINE PHOSPHOKINASE 243 U/L (39-308); MB/CK RELATIVE INDEX 1.28 (< OR =4); TROPONIN I < 0.02 NG/ML (< 0.10)
--- NOTE | 2019-02-25 10:45 | REP ---
Chest x-ray: Two views. History: Persistent cough . Comparison study: December 16, 2017 . Findings: The lungs are well inflated and free of infiltrate. The pleural angles are sharp. The heart size is normal. Pulmonary vasculature is not increased. No significant bony abnormality is seen. Impression: Negative chest x-ray. Electronically Signed by Goldy Harper MD 02/25/2019 10:37 A
[2019-02-25 11:58] VITALS: BP 143/99
[2019-02-25] MEDS ORDERED: MECLIZINE 25 MG TABLET PO ONE (12:15)
--- NOTE | 2019-02-25 19:08 | ECGEPIP ---
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
== END 2019-02-25 13:21 | disposition home or self-care (01) ==
LOC: M ED 09:05
DX: J06.9 Acute upper respiratory infection, unspecified (principal); B34.9 Viral infection, unspecified; J30.9 Allergic rhinitis, unspecified; H61.21 Impacted cerumen, right ear; H92.01 Otalgia, right ear; F33.9 Major depressive disorder, recurrent, unspecified; F41.9 Anxiety disorder, unspecified; F17.210 Nicotine dependence, cigarettes, uncomplicated; Z88.8 Allergy status to other drugs, medicaments and biological substances

== ENCOUNTER 2020-02-15 17:07 | Emergency (ER) | payer SELFPAY ==
[~2020-02-15] VITALS: Ht 182.9 cm; Wt 73.8 kg
[2020-02-15 17:07] VITALS: BP 162/95
[~2020-02-15 17:07] MED LIST changes: +CYCL-707 PO; -CYCL10TA PO
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
== END 2020-02-15 18:09 | disposition home or self-care (01) ==
LOC: M ED 17:07
DX: S61.412A Laceration without foreign body of left hand, initial encounter (principal); W27.8XXA Contact with other nonpowered hand tool, initial encounter; Y92.019 Unspecified place in single-family (private) house as the place of occurrence of the external cause; Y93.9 Activity, unspecified; F33.9 Major depressive disorder, recurrent, unspecified; F41.9 Anxiety disorder, unspecified; Z88.8 Allergy status to other drugs, medicaments and biological substances; Z79.899 Other long term (current) drug therapy; F17.200 Nicotine dependence, unspecified, uncomplicated